=== PATIENT | female | born 1940 | race Caucasian/White ===

== ENCOUNTER 2024-01-01 12:44 | Outpatient (CLI) | payer MEDICARE, SELFPAY ==
--- NOTE | ~2024-01-01 | NM_ITS ---
EXAMINATION: NM lung vent and perfusion DATE: 01/01/2024 13:38 INDICATION: Shortness of breath TECHNIQUE: 25.1 mCi xenon-133 by inhalation and 4.43 mCi Tc-99m MAA by intravenous route. Scintigrap hic images of the chest were obtained. COMPARISON: Chest radiograph dated 01/01/2024 FINDINGS: There is homogeneous radiotracer activity throughout the lungs at the equilibrium phase of the breath ventilation sequence. There is relatively decreased activity on the initial single breath image with corresponding retention of activity on the washout images in the bilateral lower lungs consistent wi th obstructive pulmonary disease. There is a perfusion defect at the anteroinferior lingula correspon ding to a prominent left paracardial fat pad on the prior radiographs. There are no other There is ot herwise relatively homogeneous perfusion throughout the lungs. No discrete ventilation and perfusion mismatch is identified. IMPRESSION: 1. Low probability for pulmonary embolism. 2. Retention of activity on washout images at the bilateral lower lung zones consistent with obstruct gee pulmonary disease. Reviewed, dictated and finalized at [facility]. IMPRESSION: 1. Low probability for pulmonary embolism. 2. Retention of activity on washout images at the bilateral lower lung zones co nsistent with obstructive pulmonary disease.
--- NOTE | ~2024-01-01 | XR_ITS ---
Clinical Indication: Shortness of breath PA and lateral views of the chest: Comparison: None Findings: The lungs are clear, without evidence of focal consolidation or pleural effusion. Cardiome diastinal silhouette is within normal limits. Bones and soft tissues are unremarkable. Impression: Normal chest. Reviewed, dictated and finalized at [facility]. Impression: Normal chest.
== END 2024-01-01 12:45 | disposition home or self-care (01) ==
LOC: ANHIMG 12:54
PROVIDERS: PCP Internal Medicine; Visit Provider Internal Medicine
DX: R91.8 Other nonspecific abnormal finding of lung field (principal)
CPT/HCPCS: 71046; 78582; A9540; A9558